=== PATIENT | male | born 1990 | race Caucasian/White ===

== ENCOUNTER 2024-12-26 15:26 | Emergency (ER) | payer OTHER | END 2024-12-26 17:17 | disposition home or self-care (01) | LOC: JD.ED 15:26 | DX: S61.213A Laceration without foreign body of left middle finger without damage to nail, initial encounter (principal); I10 Essential (primary) hypertension; Z91.030 Bee allergy status; Z79.899 Other long term (current) drug therapy; W31.2XXA Contact with powered woodworking and forming machines, initial encounter; Y99.0 Civilian activity done for income or pay | CPT/HCPCS: 99282 ==